=== PATIENT | female | born 1960 | race African-American/Black ===

== ENCOUNTER 2018-04-21 19:19 | Emergency (ER) | payer MEDICARE, OTHER ==
[~2018-04-21] VITALS: Ht 154.9 cm; Wt 87.1 kg
[~2018-04-21 19:19] MED LIST: ALEN70TA5 PO; AMLO10TA6 PO; BRIN10DR EACHEYE; CEFP200T PO; FLUP5TAB PO; GLIP5TAB10 PO; HYDR25TA9 PO; IPRA3AMP29 NEB; LEVO500T59 PO; LOSA50TA7 PO; METF500T16 PO; Nicotine TD; PRAV40TA2 PO; PRED-220 PO; PROAIR HFA8.5 GM INH; TRAV5DRO EACHEYE; TRIH2TAB3 PO
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
[2018-04-21 22:00] VITALS: BP 158/87
--- NOTE | 2018-04-21 22:43 | RAD ---
Three-view left knee radiographs 04/21/2018 CLINICAL HISTORY: Fall with injury to the left knee. AP, lateral and oblique digital radiographs of the left knee were obtained. No fracture or dislocation of the left knee is seen. Mild degenerative changes are seen involving all 3 compartments of the left knee. There is no radiographic evidence of a joint effusion. IMPRESSION: No fracture or dislocation of the left knee is seen. Electronically signed by: Jackson Grider MD (04/21/2018 10:39 PM) [facility]
== END 2018-04-21 22:04 | disposition home or self-care (01) ==
LOC: ER 19:19
DX: S80.02XA Contusion of left knee, initial encounter (principal); I10 Essential (primary) hypertension; E11.9 Type 2 diabetes mellitus without complications; E78.00 Pure hypercholesterolemia, unspecified; Z88.5 Allergy status to narcotic agent; W03.XXXA Other fall on same level due to collision with another person, initial encounter; Y93.89 Activity, other specified; Y92.89 Other specified places as the place of occurrence of the external cause; Y99.8 Other external cause status
CPT/HCPCS: 73562; 99284